=== PATIENT | female | born 1995 | race Native Hawaiian/Other Pacific Islander ===

== ENCOUNTER → 2017-12-19 | Outpatient (CLI) | payer SELFPAY ==
[2017-12-19 16:56] LABS: ABSOLUTE EOSINOPHILS # (AUTO) 0.1 10^3/uL (0.0-0.6); ABSOLUTE LYMPHOCYTES (AUTO) 1.4 10^3/uL (0.5-4.7); ABSOLUTE MONOCYTES (AUTO) 0.9 10^3/uL (0.1-1.4); BASOPHILS % (AUTO) 0.2 % (0-2); HEMATOCRIT 39.6 % (36.0-47.0); HEMOGLOBIN 13.2 g/dL (12.0-15.5); LYMPHOCYTES % (AUTO) 10.3 % (13-45); MEAN CORPUSCULAR HEMOGLOBIN 29.5 pg (27.0-33.4); MEAN CORPUSCULAR HGB CONC 33.3 g/dL (32.0-36.0); MEAN CORPUSCULAR VOLUME 89 fl (80-97); MONOCYTES % (AUTO) 6.8 % (3-13); PLATELET COUNT 251 10^3/uL (150-450); RED BLOOD COUNT 4.46 10^6/uL (3.72-5.28); RED CELL DISTRIBUTION WIDTH 13.8 % (11.5-14.0); SEGMENTED NEUTROPHILS % (AUTO) 81.7 % (42-78); TOTAL CELLS COUNTED % (AUTO) 100 %; WHITE BLOOD COUNT 13.5 10^3/uL (4.0-10.5)
[2017-12-19 17:54] LABS: ALANINE AMINOTRANSFERASE 23 U/L (9-52); ALBUMIN 4.1 g/dL (3.5-5.0); ALKALINE PHOSPHATASE 42 U/L (38-126); ANION GAP 13 (5-19); ASPARTATE AMINO TRANSFERASE 21 U/L (14-36); BILIRUBIN,DIRECT 0.2 mg/dL (0.0-0.4); BILIRUBIN,TOTAL 0.5 mg/dL (0.2-1.3); BLOOD UREA NITROGEN 13 mg/dL (7-20); CALCIUM 9.1 mg/dL (8.4-10.2); CARBON DIOXIDE 24 mmol/L (22-30); CHLORIDE 104 mmol/L (98-107); GLUCOSE 86 mg/dL (75-110); POTASSIUM 3.9 mmol/L (3.6-5.0); SODIUM 140.7 mmol/L (137-145); TOTAL PROTEIN 7.4 g/dL (6.3-8.2)
[2017-12-20 12:56] LABS: CHLAM PCR NOT DETECTED (NOT DETECT); GON PCR NOT DETECTED (NOT DETECT)
== END ==
LOC: LAB 16:28
PROVIDERS: ATTEND Nurse Practitioner Acute Care
DX: J02.9 Acute pharyngitis, unspecified (principal)
CPT/HCPCS: 36415; 80053; 85025; 86308; 86592; 87070; 87491; 87591

== ENCOUNTER 2017-12-21 23:29 | Emergency (ER) | payer OTHER ==
[2017-12-22] MEDS ORDERED: BENZOCAINE 20% AEROSOL SPRAY 60 GM TP ONE (01:25)
[2017-12-22] MEDS ORDERED: LIDOCAINE 2% INJ-PF (20 MG/ML) 10 ML AMPUL NEB ONE (01:25)
[2017-12-22] MEDS ORDERED: LIDOCAINE 1%/EPINEPHRINE INJ 20 ML VIAL INJ ONE (01:25)
[2017-12-22] MEDS ORDERED: CLINDAMYCIN HCL 150 MG CAPSULE PO ONE (01:26)
[2017-12-22] MEDS ORDERED: DEXAMETHASONE 4 MG TABLET PO ONE (01:26)
[2017-12-22] MEDS ORDERED: LIDOCAINE 1% INJ-PF (10 MG/ML) 30 ML SDV ONE (01:27)
--- NOTE | 2017-12-22 01:27 | ER Document Report ---
ED General - General Chief Complaint: Sore Throat Stated Complaint: THROAT PAIN/SWOLLEN Time Seen by Provider: 12/22/17 00:13 Notes: Patient is a 22-year-old female without past medical history who presents with 1 month of intermittent sore throat has become worse over the last 2-3 days. The patient reports that she has been treated on 3 separate occasions with oral antibiotics due to concerns of possible strep pharyngitis although she has had repeatedly negative strep testing and throat cultures. Her mono test has also come back negative on 2 separate occasions. She states that while she is on antibiotics her symptoms seem to improve but then they rapidly return after the antibiotic course completes. She describes the pain in her throat is being more dominant towards the right side. She notes a dull, throbbing, constant pain to the area. Swallowing or eating worsens the pain. Nothing improves the pain. She denies any difficulty breathing or swallowing. No history of similar symptoms in the past. She is currently visiting home and goes to college at [employer] or most of her care has been completed. She denies any fever or constitutional symptoms. TRAVEL OUTSIDE OF THE [place] IN LAST 30 DAYS: No - Related Data Allergies/Adverse Reactions: No Known Allergies Allergy (Unverified 12/21/17 23:33) Past Medical History - General Information source: Patient, Parent - Social History Smoking Status: Never Smoker Frequency of alcohol use: None Drug Abuse: None Lives with: Parents Family History: Reviewed & Not Pertinent Patient has suicidal ideation: No Patient has homicidal ideation: No Renal/ Medical History: Denies: Hx Peritoneal Dialysis Review of Systems - Review of Systems Notes: Constitutional: Negative for fever. HENT: Positive for sore throat. Eyes: Negative for visual changes. Cardiovascular: Negative for chest pain. Respiratory: Negative for shortness of breath. Gastrointestinal: Negative for abdominal pain, vomiting or diarrhea. Genitourinary: Negative for dysuria. Musculoskeletal: Negative for back pain. Skin: Negative for rash. Neurological: Negative for headaches, weakness or numbness. 10 point ROS negative except as marked above and in HPI. Physical Exam - Vital signs Vitals: Temp Pulse Resp BP Pulse Ox 99.2 F 86 16 116/79 100 12/21/17 23:35 12/21/17 23:35 12/21/17 23:35 12/21/17 23:35 12/21/17 23:35 Interpretation: Normal Notes: PHYSICAL EXAMINATION: GENERAL: Well-appearing, well-nourished and in no acute distress. HEAD: Atraumatic, normocephalic. EYES: Pupils equal round and reactive to light, extraocular movements intact, sclera anicteric, conjunctiva are normal. ENT: nares patent, swelling of the right peritonsillar space with mild deviation of the uvula toward the left. No exudates. Oropharynx widely patent. NECK: Normal range of motion, right-sided segmental and anterior cervical lymphadenopathy LUNGS: Breath sounds clear to auscultation bilaterally and equal. No wheezes rales or rhonchi. HEART: Regular rate and rhythm without murmurs ABDOMEN: Soft, nontender, normoactive bowel sounds. No guarding, no rebound. No masses appreciated. EXTREMITIES: Normal range of motion, no pitting or edema. No cyanosis. NEUROLOGICAL: No focal neurological deficits. Moves all extremities spontaneously and on command. PSYCH: Normal mood, normal affect. SKIN: Warm, Dry, normal turgor, no rashes or lesions noted. Course - Re-evaluation Re-evalutation: 12/22/17 01:26 Patient presents with signs and symptoms most consistent with a right peritonsillar abscess. Uvula is slightly diverted toward the left. Subtle segmental lymph adenopathy on the right. Airway is otherwise patent, no distress. Swallowing oral secretions without difficulty. Will proceed with a needle aspiration. 12/22/17 02:14 Needle aspiration attempted on the right peritonsillar abscess. 0.25 mL's of purulent material with associated blood was drained. 3 total needle placements were performed. Patient tolerated procedure well without any complications. She will be started on dexamethasone, clindamycin and I have encouraged her to follow-up closely with Dr. Casas the ENT for further evaluation and possible formal incision and drainage if there is failure to improve after the needle aspiration here in the emergency department. At this time will discharge with return precautions and follow-up recommendations. Verbal discharge instructions given a the bedside and opportunity for questions given. Medication warnings reviewed. Patient is in agreement with this plan and has verbalized understanding of return precautions and the need for primary care follow-up in the next 24-72 hours. - Vital Signs Vital signs: Temp Pulse Resp BP Pulse Ox 99.3 F 90 20 108/74 99 08/14/18 02:50 12/22/17 02:50 12/22/17 02:50 12/22/17 02:50 12/22/17 02:50 Procedures - Incision and Drainage Right peritonsillar abscess Type: Simple Anesthetic type: 1% Lidocaine mL's of anesthetic: 2 Blade size: 11 Incision Method: Incision made with needle Amount/type of drainage: 0.25-0.5 cc of bloody, purulent drainage Discharge - Discharge Clinical Impression: Peritonsillar abscess, Sore throat Condition: Good Disposition: HOME, SELF-CARE Additional Instructions: You were seen today for a right peritonsillar abscess. A needle aspiration was attempted and we did obtain a small amount of pus from the abscess. You are being started on antibiotics and steroids to help reduce the swelling and infection in the area. However, I would like you to follow-up closely with our ENT doctor listed in the paperwork ideally within the next 24-48 hours. You need to return to the emergency department immediately if you develop difficulty breathing, difficulty swallowing, fever of greater than 101F, pass out, or have any other symptoms that are concerning to you. Prescriptions: Clindamycin HCl 300 mg PO TID #30 capsule Prednisone [Deltasone 20 mg Tablet] 3 tab PO DAILY 5 Days tablet Referrals: REINA HIDALGO MD [Primary Care Provider] - Follow up as needed DELVIN CANDELARIA DO [ASSOCIATE] - Follow up tomorrow
[2017-12-22] MEDS ORDERED: BENZOCAINE 20% AEROSOL SPRAY 60 GM ONE (01:41)
[2017-12-22 03:01] VITALS: BP 108/74
== END 2017-12-22 02:51 | disposition home or self-care (01) ==
LOC: ER 23:29
DX: J36 Peritonsillar abscess (principal)
CPT/HCPCS: 42700; 99283; 87070; 87880; J3490 ×2